=== PATIENT | female | born 1995 | race Caucasian/White ===

== ENCOUNTER 2016-08-20 19:58 | Emergency (ER) | payer MEDICAID ==
[~2016-08-20] VITALS: Ht 162.6 cm; Wt 89.8 kg
[2016-08-20 20:28] VITALS: BP 126/84
[2016-08-20 20:46] LABS: Urine Bilirubin Negative (Negative); Urine Blood Negative /uL (Negative); Urine Color Yellow (Yellow); Urine Glucose Normal (Normal); Urine Ketone Negative (Negative); Urine Mucus MODERATE (None Seen); Urine Nitrite Negative (Negative); Urine RBC 5 /hpf (0 - 4); Urine Squamous Epithelial Cell MANY /hpf (<5); Urine Urobilinogen Normal (Negative); Urine pH 6.5 (5.0-8.0)
[2016-08-20] MEDS ORDERED: KETOROLAC TROMETH 60MG/2ML VIAL IM ONE (21:30)
[2016-08-20] MEDS ORDERED: methylPREDNISolone SOD SUCC 125 MG/2 ML VL IM ONE (21:30)
== END 2016-08-20 22:06 | disposition home or self-care (01) ==
LOC: ER 20:12
DX: M54.16 Radiculopathy, lumbar region (principal); M79.1 Myalgia; Z91.030 Bee allergy status
CPT/HCPCS: 81001; 81025; 96372; 99284; J1885; J2930